=== PATIENT | female | born 1980 | race Caucasian/White ===

== ENCOUNTER 2017-01-23 10:49 | Observation (INO) ==
[2017-01-23] MEDS ORDERED: Ketorolac 30 MG/ML VIAL IVP ONE (11:48)
[2017-01-23] MEDS ORDERED: Hyoscyamine 0.5 MG/ML MLS IVP ONE (11:51)
[2017-01-23 12:34] LABS: Basophils % 0.3 %; Eosinophils % 0.6 %; Hematocrit 36.1 % (35.3-44.9); Hemoglobin 11.8 g/dL (11.5-15.4); Immature Granulocytes % 0.2 % (0-4); Lymphocytes # 1.5 K/mcL (0.6-4.6); Lymphocytes % 23.1 %; Mean Corpuscular HGB Conc 32.7 g/dL (31.6-35.5); Mean Corpuscular Hemoglobin 29.9 pg (28.0-33.3); Mean Corpuscular Volume 91.4 fL (83.0-100.0); Monocytes # 0.5 K/mcL (0.0-1.3); Monocytes % 7.1 %; Neutrophils # 4.5 K/mcL (1.6-8.9); Platelet Count 202 K/mcL (140-400); Red Blood Count 3.95 M/mcL (3.82-4.97); Red Cell Distribution Width 13.2 % (11.5-14.5); Segmented Neutrophils % 68.7 %
[2017-01-23 12:49] LABS: Alanine Aminotransferase 9 Units/L (0-55); Albumin 3.9 g/dL (3.5-5.0); Albumin/Globulin Ratio 1.3 (1.1-2.2); Alkaline Phosphatase 45 Units/L (38-126); Aspartate Amino Transferase 17 Units/L (5-34); BUN/Creatinine Ratio 15 (6-26); Bilirubin,Direct 0.1 mg/dL (0.0-0.5); Bilirubin,Indirect 0.2 mg/dL (0.0-1.2); Bilirubin,Total 0.3 mg/dL (0.2-1.2); Blood Urea Nitrogen 12 mg/dL (7-20); Calcium 8.9 mg/dL (8.6-10.8); Carbon Dioxide 27 mEq/L (19-29); Chloride 106 mEq/L (98-109); Glucose 91 mg/dL (70-99); Lipase 17 Units/L (8-78); Osmolality,Calculated 285 (280-300); Potassium 3.7 mEq/L (3.5-4.5); Sodium 138 mEq/L (136-145); Total Protein 6.9 g/dL (6.0-8.3); eGFR For African Americans > 60 (> 60); eGFR For Non-African Americans > 60 (> 60)
[2017-01-23] MEDS ORDERED: *HR* HYDROmorphone (PF) 1 MG/ML SYRINGE IVP ONE ×2 (13:35→14:39)
--- NOTE | 2017-01-23 13:37 | Emergency Department Note ---
Disposition Clinical Impression: Symptomatic cholelithiasis Disposition: Admitted As Inpatient Condition: Fair Referrals: Radha Durant CNP [Primary Care Provider] - Forms: ED Satisfaction Letter General Adult HPI - General Chief complaint: ED Allergic Reaction Stated complaint: Allergic reaction to Omeprazole Time Seen by Provider: 01/23/17 11:01 Source: patient Limitations: no limitations Nursing Notes Reviewed: Yes Vital Signs Reviewed: Yes - History of Present Illness HPI Narrative: Presents with right upper quadrant abdominal pain which is sharp and severe and constant and she was seen here 5 days ago and diagnosed with cholelithiasis and currently her pain does radiate up to the shoulder. She does have chills but no fevers. Does have nausea but no vomiting. No blood in the urine or stool. Has been using Vicodin for pain but only has 3 left. Social history: No smoking or alcohol. Is here with her mother Pain Scale: 6 - Related Data Previous Rx's Medication Instructions Recorded HYDROcodone/Acet 5/325 mg [[place] 1 tab PO Q6H PRN #12 tab 01/18/17 5-325 mg] Omeprazole 20 mg PO DAILY #30 tablet. 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 EYES: PERRL, no scleral icterus. NOSE: The nose is normal in appearance without rhinorrhea RESP: Normal chest excursion with respiration; breath sounds clear and equal bilaterally; no wheezes, rhonchi, or rales CARD: Regular rhythm, without murmurs, rub or gallop ABD: Non-distended; normal appearance, does have significant pain with palpation right upper quadrant which is moderate to severe but this area is soft without rigidity, rebound, guarding. Elsewhere the abdomen is non-tender , soft,without rigidity, rebound or guarding SKIN: Normal for age and race; warm and dry; no apparent lesions - General Limitations: no limitations General appearance: alert Course Vital Signs Temperature 98.5 F 01/23/17 10:52 Pulse Rate 81 01/23/17 10:52 Respiratory Rate 20 01/23/17 10:52 Blood Pressure 117/73 01/23/17 10:52 O2 Sat by Pulse Oximetry 100 01/23/17 10:52 Temperature 98.5 F 01/23/17 10:52 Pulse Rate 82 01/23/17 15:01 Respiratory Rate 18 01/23/17 15:01 Blood Pressure 107/68 01/23/17 15:01 O2 Sat by Pulse Oximetry 100 01/23/17 15:01 Oxygen Delivery Oxygen Delivery Room Air Medical Decision Making - MDM Narrative Medical decision making narrative: I did order labs which did come back negative. Ultrasound is repeated which does show a stone near the gallbladder neck. Surgeries consult and will come to the ED to further evaluate the patient. 1337 surgery did come to the emergency department to evaluate the patient and the patient will be admitted for intractable pain which is not responsive to oral pain medicine at home for a diagnosis of symptomatic cholelithiasis 1547 - Medical Records Medical records reviewed: Yes I reviewed the patient's medical records. - Lab Data Lab results reviewed: Yes I reviewed the patient's lab results. Result diagrams: 01/23/17 12:09 01/23/17 12:09 Lab Results 01/23/17 01/23/17 01/23/17 Range/Units 12:09 12:09 12:10 WBC 6.5 (4.3-11.1) K/mcL RBC 3.95 (3.82-4.97) M/mcL Hgb 11.8 (11.5-15.4) g/dL Hct 36.1 (35.3-44.9) % MCV 91.4 (83.0-100.0) fL MCH 29.9 (28.0-33.3) pg MCHC 32.7 (31.6-35.5) g/dL RDW 13.2 (11.5-14.5) % Plt Count 202 (140-400) K/mcL MPV 10.0 (9.4-12.4) fL Immature Gran % 0.2 (0-4) % Seg Neutrophils % 68.7 % Lymphocytes % 23.1 % Monocytes % 7.1 % Eosinophils % 0.6 % Basophils % 0.3 % Neutrophils # 4.5 (1.6-8.9) K/mcL Lymphocytes # 1.5 (0.6-4.6) K/mcL Monocytes # 0.5 (0.0-1.3) K/mcL Eosinophils # 0.0 (0.0-0.6) K/mcL Basophils # 0.0 (0.0-0.2) K/mcL Sodium 138 (136-145) mEq/L Potassium 3.7 (3.5-4.5) mEq/L Chloride 106 (98-109) mEq/L Carbon Dioxide 27 (19-29) mEq/L BUN 12 (7-20) mg/dL Creatinine 0.79 (0.57-1.11) mg/dL Est GFR ( Amer) > 60 (> 60) Est GFR (Non-Af Amer) > 60 (> 60) BUN/Creatinine Ratio 15 (6-26) Glucose 91 (70-99) mg/dL Calculated Osmolality 285 (280-300) Calcium 8.9 (8.6-10.8) mg/dL Total Bilirubin 0.3 (0.2-1.2) mg/dL Direct Bilirubin 0.1 (0.0-0.5) mg/dL Indirect Bilirubin 0.2 (0.0-1.2) mg/dL AST 17 (5-34) Units/L ALT 9 (0-55) Units/L Alkaline Phosphatase 45 (38-126) Units/L Serum Total Protein 6.9 (6.0-8.3) g/dL Albumin 3.9 (3.5-5.0) g/dL Globulin 3.0 (2.4-3.5) g/dL Albumin/Globulin Ratio 1.3 (1.1-2.2) Lipase 17 (8-78) Units/L Urine Test Negative (Negative) - Radiology Data Radiology results reviewed: Yes I reviewed the patient's radiology results.
[2017-01-23] MEDS ORDERED: Naloxone 0.4 MG/ML INJ IVP PRN (15:22)
[2017-01-23] MEDS ORDERED: Ondansetron 4 MG/2 ML VIAL IVP PRN (15:22)
[2017-01-23] MEDS ORDERED: Acetaminophen 325 MG TABLET PO PRN (15:25)
[2017-01-23] MEDS ORDERED: *HR* HYDROmorphone (PF) 1 MG/ML SYRINGE IVP PRN (15:25)
[2017-01-23] MEDS ORDERED: *HR* OxyCODONE/APAP 5/325 TABLET PO PRN (15:25)
--- NOTE | 2017-01-23 15:32 | General Surg History&Physical ---
Date of Encounter: 01/23/17 Time of Encounter: 15:00 Assessment and Plan (1) Symptomatic cholelithiasis Current Visit: Yes Status: Acute The assessment and plan as outlined above was discussed with the patient and/or family members who expressed understanding and agreement. All questions were answered. Clear liquid diet today Nothing by mouth after midnight IV fluids Supportive care and pain control Risks, benefits, alternatives, expected outcomes have been reviewed with the patient she is in agreement to proceed to the operating room in the next 24 hours for a laparoscopic cholecystectomy with cholangiogram with Dr. Lawson Martin from her every 1 hour while awake PPI therapy daily Mefoxin 2GM on-call to the OR on 01/24/2017 (2) DVT prophylaxis Current Visit: Yes Status: Acute The assessment and plan as outlined above was discussed with the patient and/or family members who expressed understanding and agreement. All questions were answered. 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 Knox is a 36 year old female with a past medical history significant for anxiety. She presents to the emergency department today with complaints of right upper quadrant abdominal pain. She reports the pain as being sharp and stabbing in nature. She reports that does radiate into her back at times. She reports that she has had similar episode to this in the past. She reports that the episodes have been occurring for "a long time". She experienced her worst episode of pain 5 days ago and she reported to the emergency department for evaluation. She was treated and discharged home with pain medication and follow -up with the surgery office. She states that the Vicodin relieved her symptoms but as soon as she would stop taking the medications her symptoms would return. She reported back to the emergency department today for recurrence of pain. She reports nausea but denies any vomiting. Admits to chills but denies any fevers. Denies any changes in bowel habits. Denies any weight loss. Denies any difficulty with urination. Denies any shortness of breath or chest pain. She has had an ultrasound completed which shows evidence of cholelithiasis with a gallstone located in the neck of the gallbladder. The patient will be admitted to the hospital for further workup and treatment. Past Med Surg Social Fam HX - Past Medical History Source: patient Medical history: other (acne) Psychiatric history: anxiety - Past Surgical History Surgical History: other (tubal ligation) - Social History Smoking Status: Never smoker Smokeless Tobacco Status: No Alcohol use: none Drug use: none Occupational status: employed Current living situation: Home - Independent Activity Level: Independent ambulation - Family History Mother Living Status: Still Living Hx Family Autoimmune Disorders: Yes (ITP) Father History Unknown: Yes Medications and Allergies HYDROcodone/Acet 5/325 mg [[place] 5-325 mg] 1 tab PO Q6H PRN #12 tab 01/18/17 [Rx ] Omeprazole 20 mg PO DAILY #30 tablet. 01/18/17 [Rx] Allergies No Known Allergies Allergy (Verified 01/23/17 10:52) Review of Systems All systems PM: reviewed and no additional remarkable complaints except as stated (in the HPI) All systems PM: A 10-system review of systems was performed and is negative for pertinent findings except as documented above in the HPI. General Surgery Exam Initial Vital Signs Temp Pulse Resp BP Pulse Ox 98.5 F 81 20 117/73 100 01/23/17 10:52 01/23/17 10:52 01/23/17 10:52 01/23/17 10:52 01/23/17 10:52 - General physical appearance well developed, well nourished, no distress - Eyes normal ocular movement - ENT normal mucosa, atraumatic, normocephalic - Neck trachea midline - Respiratory normal expansion, normal respiratory effort, clear to auscultation - Cardiovascular Cardiovascular exam: Present: RRR - Abdomen Abdomen general surgery: Present: bowel sounds present, soft, tender Abdominal Tenderness: Present: epigastic, RUQ - Integumentary Integumentary general surgery: Present: warm and dry - Neurologic Present: CN 2-12 grossly intact - Musculoskeletal Present: normal gait, normal posture - Psychiatric Psychiatric general surgery: Present: appropriate, oriented to person, oriented to place, oriented to time, speech is normal, memory intact Results - Labs 01/23/17 12:09 01/23/17 12:09 Diabetes panel 01/23/17 Range/Units 12:09 Sodium 138 (136-145) mEq/L Potassium 3.7 (3.5-4.5) mEq/L Chloride 106 (98-109) mEq/L Carbon Dioxide 27 (19-29) mEq/L BUN 12 (7-20) mg/dL Creatinine 0.79 (0.57-1.11) mg/dL Glucose 91 (70-99) mg/dL Calcium 8.9 (8.6-10.8) mg/dL AST 17 (5-34) Units/L ALT 9 (0-55) Units/L Alkaline Phosphatase 45 (38-126) Units/L Albumin 3.9 (3.5-5.0) g/dL Calcium panel 01/23/17 Range/Units 12:09 Calcium 8.9 (8.6-10.8) mg/dL Albumin 3.9 (3.5-5.0) g/dL Pituitary panel 01/23/17 Range/Units 12:09 Sodium 138 (136-145) mEq/L Potassium 3.7 (3.5-4.5) mEq/L Chloride 106 (98-109) mEq/L Carbon Dioxide 27 (19-29) mEq/L BUN 12 (7-20) mg/dL Creatinine 0.79 (0.57-1.11) mg/dL Glucose 91 (70-99) mg/dL Calcium 8.9 (8.6-10.8) mg/dL Adrenal panel 01/23/17 Range/Units 12:09 Sodium 138 (136-145) mEq/L Potassium 3.7 (3.5-4.5) mEq/L Chloride 106 (98-109) mEq/L Carbon Dioxide 27 (19-29) mEq/L BUN 12 (7-20) mg/dL Creatinine 0.79 (0.57-1.11) mg/dL Glucose 91 (70-99) mg/dL Calcium 8.9 (8.6-10.8) mg/dL Total Bilirubin 0.3 (0.2-1.2) mg/dL AST 17 (5-34) Units/L ALT 9 (0-55) Units/L Alkaline Phosphatase 45 (38-126) Units/L Albumin 3.9 (3.5-5.0) g/dL All other labs normal. - Imaging US - abdomen: report reviewed Additional studies: Gallbladder Ultrasound 01/23/17 11:52 IMPRESSION: Gallstone located near the neck the gallbladder but no evidence of cholecystitis. Otherwise negative examination D/ / Dion Negrete MD / Dion Negrete MD Interpreting Provider: Dion Negrete MD - Attending Attestation For this encounter, I have reviewed the [employer] or PA documentation, treatment plan, and medical decision making; and I have had face to face time with this patient.
[2017-01-23] MEDS: 0.9 % Sodium Chloride 1,000 ML IVC SCH (18:24)
[2017-01-24] MEDS: 0.9 % Sodium Chloride 1,000 ML IVC SCH (05:58)
[2017-01-24] MEDS ORDERED: Ondansetron 4 MG/2 ML VIAL ONE (07:28)
[2017-01-24] MEDS ORDERED: Dexamethasone 4 MG/ML VIAL ONE (07:28)
[2017-01-24] MEDS ORDERED: Lidocaine -MPF 4% 5 ML AMPUL ONE (07:28)
[2017-01-24] MEDS ORDERED: Lidocaine -MPF 2% 2 ML VIAL ONE (07:28)
[2017-01-24] MEDS ORDERED: *HR* Midazolam HCl 2 MG/2 ML VIAL ONE (07:29)
[2017-01-24] MEDS ORDERED: *HR* FentaNYL (PF) 100 MCG/2 ML VIAL ONE (07:29)
[2017-01-24] MEDS ORDERED: *HR* Propofol 200 MG/20 ML VIAL IVP ONE (07:29)
--- NOTE | 2017-01-24 07:40 | Anesthesia Evaluation PreOp ---
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 01/18/17 [Rx] Sertraline [Zoloft] 50 mg PO DAILY 01/23/17 [History] Spironolactone [Aldactone] 50 mg PO DAILY 01/23/17 [History] Allergies No Known Allergies Allergy (Verified 01/23/17 15:46) - Meds/Allergy Pre-op Review Medications Reviewed: Yes Allergies Reviewed: Yes Beta Blockers on Current Med List: No Anesthesia Results - Labs 01/23/17 12:09 01/23/17 12:09 Laboratory Tests 01/23/17 01/23/17 01/23/17 12:09 12:09 12:10 WBC 6.5 Hgb 11.8 Hct 36.1 Plt Count 202 Sodium 138 Potassium 3.7 Chloride 106 Carbon Dioxide 27 BUN 12 Creatinine 0.79 Est GFR (Non-Af Amer) > 60 Glucose 91 Urine Test Negative - Imaging EKG: image reviewed (62bpm, possible RV conduction delay) Anesthesia Exam Vital Signs Temp Pulse Resp BP Pulse Ox 01/24/17 07:01 98.7 F 77 15 103/66 98 01/24/17 03:34 98.0 F 76 16 100/65 100 01/23/17 23:39 98.2 F 59 12 100/64 99 01/23/17 19:48 98.0 F 70 12 97/64 98 01/23/17 16:46 18 102/72 01/23/17 15:55 76 18 108/62 98 01/23/17 15:01 82 18 107/68 100 01/23/17 11:42 85 18 120/66 99 01/23/17 10:52 98.5 F 81 20 117/73 100 Intake and Output 01/23/17 01/23/17 01/24/17 15:59 23:59 07:59 Intake Total 200 / 200 1000 / 1000 Balance 200 / 200 1000 / 1000 Intake: IV Fluids 1000 / 1000 0.9 % Sodium Chloride 1, 1000 / 1000 000 ML @ 75 mls/hr IVC . [id number] JOSEPHINE Rx#: [id number] Oral 200 / 200 Other: Weight 67.948 kg 67.585 kg Patient Weight 01/24/17 23:59 Weight 67.585 kg Height: 5'4" Weight: 150# BMI = 25.6 NPO (# of Hours): MNoc - HEENT Pupil (Motor): Pupils equal, EOMI Mallampati: II Teeth: Normal Oral Opening: Greater than 3 - STAFF TECHNOLOGIST LOC: Oriented STAFF TECHNOLOGIST Motor: Normal RUE, Normal LUE, Normal RLE, Normal LLE, Normal Face STAFF TECHNOLOGIST Sensory: Normal: RUE, LUE, RLE, LLE, Face - Cardiac Rhythm: Regular Murmur: None - Pulmonary Breath Sounds: bilateral Clear Respiratory Effort: Symmetrical Anesthesia Assess/Plan ASA Score: 2 Modified Edison Scale for Level of Consciousness: Cooperative, oriented, and tranquil Anesthetic Plan: General Monitoring Plan: Standard Monitors Recovery Plan: PACU Anes Supervising Prov Stmt: Pt seen/evaluated, R&B discussed, questions answered and consent obtained. Berenice Hanson MD
[2017-01-24] MEDS ORDERED: Acetaminophen IV 1,000 MG/100 ML INFUS..BTL ONE (07:49)
[2017-01-24] MEDS ORDERED: CefOXitin 2,000 MG VIAL IVPB ONE (07:57)
[2017-01-24] MEDS ORDERED: cefOXitin 2,000 MG in D5% in Water (Mini-Bag+) 100 ML IVPB ONE (08:00)
[2017-01-24] MEDS ORDERED: Lacri-Lube 3.5 GM TUBE ONE (08:43)
[2017-01-24] MEDS ORDERED: Neostigmine Methylsulfate 3 MG/3 ML SYRINGE ONE (08:53)
[2017-01-24] MEDS ORDERED: Ondansetron 4 MG/2 ML VIAL IVP ONE ×2 (09:01→10:10)
[2017-01-24] MEDS ORDERED: *HR* Labetalol 20 MG/4 ML SYRINGE IVP PRN ×2 (09:01→10:10)
[2017-01-24] MEDS ORDERED: *HR* Promethazine 25 MG/ML VIAL IVP PRN ×2 (09:01→10:10)
--- NOTE | 2017-01-24 09:09 | Operative Note ---
Date of procedure: 01/24/17 Pre-op diagnosis: Symptomatic cholelithiasis Post-op diagnosis: same Procedure: Laparoscopic cholecystectomy with cholangiogram Anesthesia: HERBERT Surgeon: Brendon Pathak Estimated blood loss (cc): 5 Specimen: gb Condition: stable Disposition: same day Procedure in Detail: After informed consent this patient was taken the operating room placed supine position. After adequate sedation anesthesia the abdomen was prepped and draped. A proper timeout was performed. Two towel clamps are placed at the umbilicus and a Veres needle was inserted into the abdomen. A 5 mm incision was made at the umbilicus. A 12 mm incision was made in the subxiphoid region. Two 5 mm incisions were made in the right upper quadrant that were 4 finger breadths and 6 finger breadths below the costal margin. The gallbladder was identified, retracted anteriorly and cephalad, and the infundibulum was skeletonized. The cystic duct was easily identified and was dissected free. A ductotomy was created in the cystic duct. A taut catheter was placed within the cystic duct and clipped. A cholangiogram was performed. Contrast filled the cystic duct, common hepatic duct, hepatic radicles, and the distal common bile duct. There was flow of contrast into the duodenum. Once this was confirmed the clippers removed, the taut catheter was removed as well, and the cystic duct was clipped distally. The cystic duct was then transected with scissors. The gallbladder was resected off the liver surface. There was excellent hemostasis. The gallbladder was then retrieved through the 12 mm cannula site. At this point the abdomen was suctioned dry and the pneumoperitoneum was then evacuated. All ports were removed. The 12 mm cannula site was closed with an 0 Vicryl suture in [id number] fashion. The skin was closed with 4-0 Vicryl suture. Dermabond was placed as well. All instrument counts and needle counts are correct in the operation. She tolerated the procedure well and was transferred to the PACU in stable condition.
[2017-01-24] MEDS: *HR* HYDROmorphone (PF) 1 MG/ML SYRINGE IVP PRN ×2 (09:38→09:43)
[2017-01-24] MEDS ORDERED: Ketorolac 30 MG/ML VIAL ONE (10:01)
[2017-01-24] MEDS ORDERED: Ketorolac 30 MG/ML VIAL IVP ONE (10:02)
[2017-01-24] MEDS ORDERED: *HR* OxyCODONE/APAP 5/325 TABLET PO PRN (10:10)
[2017-01-24] MEDS ORDERED: *HR* HYDROmorphone (PF) 1 MG/ML SYRINGE IVP PRN ×2 (10:10)
[2017-01-24] MEDS ORDERED: Acetaminophen 325 MG TABLET PO PRN (10:10)
[2017-01-24] MEDS ORDERED: 0.9 % Sodium Chloride 1,000 ML IVC SCH (10:10)
[2017-01-24] MEDS ORDERED: Ondansetron 4 MG/2 ML VIAL IVP PRN (10:10)
[2017-01-24] MEDS ORDERED: Naloxone 0.4 MG/ML INJ IVP PRN (10:10)
--- NOTE | 2017-01-24 10:29 | Anesthesia Evaluation Post Op ---
Date of Encounter: 01/24/17 Time of Encounter: 10:00 - Vital Signs Vital Signs: Vital Signs/O2 Sat/Glucose, Most Current Temp Pulse Resp BP Pulse Ox 01/24/17 10:25 64 14 96/52 98 01/24/17 10:03 68 14 97/54 99 01/24/17 09:53 98.6 F 64 16 91/38 99 01/24/17 09:43 58 14 97/57 98 01/24/17 09:33 60 14 93/59 99 01/24/17 09:23 98.7 F 80 16 100/59 100 01/24/17 07:01 98.7 F 77 15 103/66 98 - Lungs Lungs: Clear Ascult./Percussion - Airway Airway: Non-obstructed - Cardiovascular Regular Rate - Mental Status Mental Status: Alert & Oriented, Answers Appropriately - Pain Pain Scale: 5 Pain Scale used: Numeric (1 - 10) - Nausea Vomiting Nausea Vomiting: Not Present - Hydration Hydration: Ice chips, Has not voided - Discharge PostOp Status: Transfer Patient to floor Anes Supervising Prov Stmt: Pt seen/evaluated, VSS and pt has met criteria for discharge to floor. - MD Valentin
[2017-01-24 13:48] VITALS: BP 96/59
--- NOTE | 2017-01-24 14:09 | Discharge Summary ---
Date of Encounter: 01/24/17 Time of Encounter: 14:00 - Discharge Diagnosis (1) Symptomatic cholelithiasis Priority: Primary Status: Resolved - Discharge Medications Prescriptions: Ibuprofen [Motrin] 800 mg PO Q8HR #50 tablet Docusate [Colace] 100 mg PO BID #30 tab HYDROcodone/Acet 5/325 mg [[place] 5-325 mg] 1 tab PO Q6H PRN #30 tab PRN Reason: Pain Home Medications: Omeprazole 20 mg PO DAILY #30 tablet. 01/18/17 [Rx] Sertraline [Zoloft] 50 mg PO DAILY 01/23/17 [History] Spironolactone [Aldactone] 50 mg PO DAILY 01/23/17 [History] Docusate [Colace] 100 mg PO BID #30 tab 01/24/17 [Rx] HYDROcodone/Acet 5/325 mg [[place] 5-325 mg] 1 tab PO Q6H PRN #30 tab 01/24/17 [Rx ] Ibuprofen [Motrin] 800 mg PO Q8HR #50 tablet 01/24/17 [Rx] Allergies/Adverse Reactions: Allergies No Known Allergies Allergy (Verified 01/23/17 15:46) General Surgery Exam Initial Vital Signs Temp Pulse Resp BP Pulse Ox 98.5 F 81 20 117/73 100 01/23/17 10:52 01/23/17 10:52 01/23/17 10:52 01/23/17 10:52 01/23/17 10:52 - General physical appearance well developed, well nourished, no distress - Eyes normal ocular movement - ENT normal mucosa, atraumatic, normocephalic - Neck trachea midline - Respiratory normal respiratory effort, clear to auscultation - Cardiovascular Cardiovascular exam: Present: RRR - Abdomen Abdomen general surgery: Present: bowel sounds present, soft, tender (Expected postoperative tenderness) - Incision Incision: Present: clean and dry, intact - Integumentary Integumentary general surgery: Present: warm and dry - Neurologic Present: CN 2-12 grossly intact - Musculoskeletal Present: normal gait, normal posture - Psychiatric Psychiatric general surgery: Present: appropriate, oriented to person, oriented to place, oriented to time, speech is normal, memory intact Date of admission: 01/23/17 15:59 Primary care physician: Radha Durant CNP Discharging clinician: Brendon Orr. [place]) Anticipated date of discharge: 01/24/17 - Patient Status Disposition: Home, Self-Care Condition: Good Functional capacity at discharge: independent ambulation Overall status at discharge: patient is progressing back to baseline - Discharge Instructions Follow Up With: Radha Durant, [employer] [Primary Care Provider] - Harriet Garces CNP [Advanced Practice Nurse] - 02/04/17 10:15 am (surgery follow-up) Forms: Work/School Release Additional Instructions: #1 may shower, no tub bath or swimming for 2 weeks #2 wash incisions with soap and water and pat dry daily #3 no lifting, pushing, pulling more than 15 pounds for the next 2 weeks #4 no driving until off narcotics for 24 hours and able to safely react in the car #5 may climb stairs - Diet and Activity Activity: other (See additional instructions above) Diet: advance to your usual diet - Hospital Course Hospital course: Ms. Knox is a 36 year old female presented to the emergency department with recurrent abdominal discomfort. She did have associated nausea without vomiting. Her pain is due to symptomatic cholelithiasis. She was admitted to the hospital and started on supportive measures including IV fluids and pain control. She was taken to the operating room for a laparoscopic cholecystectomy with cholangiogram with Dr. Pathak on 01/24/2017. We will begin discharge planning to home when the patient eats discharge criteria including: Tolerates liquids without nausea or vomiting, vital signs are stable and afebrile, pain is well controlled, voiding and ambulating without difficulty. We will plan for follow-up appointment in the next 10-14 days. - Time Spent with Patient Total time spent providing and/or coordinating discharge services: Less than 30 minutes - Impressions ITS Impressions Cholangiogram,Operative 01/24/17 07:32 IMPRESSION: No evidence of retained common bile duct stone D/ / Conner He MD / Conner He MD Interpreting Provider: Conner He MD
--- NOTE | 2017-01-24 14:11 | Electrocardiograph Report ---
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
--- NOTE | 2017-01-24 14:11 | Electrocardiograph Report ---
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
== END 2017-01-24 15:20 | disposition home or self-care (01) ==
LOC: EMEROO 10:49 → 3BNU 10:49
PROVIDERS: ADMIT Surgery; ATTEND Surgery

== ENCOUNTER 2019-04-29 12:47 | Inpatient (IN) ==
[2019-04-29] MEDS ORDERED: cefOXitin 2,000 MG in Water for inj. (sterile) 20 ML IVP ONE (13:05)
[2019-04-29] MEDS ORDERED: Ringers Solution, Lactated 1,000 ML IVC SCH (13:15)
[2019-04-29 13:16] LABS: Basophils % 0.4 %; Eosinophils # 0.1 K/mcL (0.0-0.6); Hematocrit 25.2 % (35.3-44.9); Hemoglobin 7.3 g/dL (11.5-15.4); Immature Granulocytes % 0.2 % (0-4); Lymphocytes # 1.6 K/mcL (0.6-4.6); Lymphocytes % 32.4 %; Mean Corpuscular Volume 65.6 fL (83.0-100.0); Mean Platelet Volume 10.2 fL (9.4-12.4); Monocytes # 0.5 K/mcL (0.0-1.3); Monocytes % 9.4 %; Neutrophils # 2.8 K/mcL (1.6-8.9); Platelet Count 175 K/mcL (140-400); Red Blood Count 3.84 M/mcL (3.82-4.97); Red Cell Distribution Width 16.5 % (11.5-14.5); Segmented Neutrophils % 56.6 %; White Blood Count 4.9 K/mcL (4.3-11.1)
[2019-04-29 13:36] LABS: Anisocytosis 1+ (Not Present)
[2019-04-29 13:37] LABS: Hypochromasia Present (Not Present); Platelet Estimate Normal (Normal)
[2019-04-29] MEDS ORDERED: Ondansetron 4 MG/2 ML VIAL IVP ONE (14:10)
[2019-04-29] MEDS ORDERED: *HR* OxyCODONE Immed Rel 5 MG TABLET PO PRN (14:10)
[2019-04-29] MEDS ORDERED: Lidocaine -MPF 2% 2 ML VIAL ONE (14:29)
[2019-04-29] MEDS ORDERED: Ondansetron 4 MG/2 ML VIAL ONE (14:29)
[2019-04-29] MEDS ORDERED: *HR* Propofol 200 MG/20 ML VIAL IVP ONE (14:30)
[2019-04-29] MEDS ORDERED: *HR* FentaNYL (PF) 100 MCG/2 ML VIAL ONE ×2 (14:30→17:56)
[2019-04-29] MEDS ORDERED: *HR* Midazolam HCl 2 MG/2 ML VIAL ONE (14:30)
[2019-04-29] MEDS ORDERED: Ketorolac 30 MG/ML VIAL ONE (16:53)
[2019-04-29] MEDS ORDERED: EPHEDrine 50 MG/ML VIAL ONE (17:23)
[2019-04-29 17:36] LABS: Hematocrit 19.1 % (35.3-44.9)
[2019-04-29 17:38] LABS: Hemoglobin 5.3 g/dL (11.5-15.4)
[2019-04-29] MEDS ORDERED: *HR* Rocuronium Bromide 50 MG/5 ML VIAL ONE (17:42)
[2019-04-29] MEDS ORDERED: Lidocaine HCL 4 ML Topical Solution (Laryng-O-Jet Kit Sterile Pak) TP ONE (17:42)
[2019-04-29 18:33] LABS: INR 1.3; Prothrombin Time 15.3 Seconds (9.4-12.1)
[2019-04-29 18:34] LABS: Basophils % 0.1 %
[2019-04-29 18:36] LABS: Activated Partial Thrombo Time 30.7 Seconds (26.0-36.0)
[2019-04-29 18:36] LABS: Eosinophils % 0.6 %; Hematocrit 24.2 % (35.3-44.9); Immature Granulocytes % 0.9 % (0-4); Immature Platelets 6.4 % (1.1-6.1); Lymphocytes # 1.3 K/mcL (0.6-4.6); Lymphocytes % 18.7 %; Mean Corpuscular HGB Conc 28.9 g/dL (31.6-35.5); Mean Corpuscular Hemoglobin 21.6 pg (28.0-33.3); Mean Corpuscular Volume 74.7 fL (83.0-100.0); Mean Platelet Volume 10.2 fL (9.4-12.4); Monocytes # 0.3 K/mcL (0.0-1.3); Monocytes % 4.3 %; Neutrophils # 5.1 K/mcL (1.6-8.9); Red Blood Count 3.24 M/mcL (3.82-4.97); Red Cell Distribution Width 21.1 % (11.5-14.5); Segmented Neutrophils % 75.4 %; White Blood Count 6.8 K/mcL (4.3-11.1)
[2019-04-29 18:37] LABS: Platelet Count 93 K/mcL (140-400)
[2019-04-29 19:09] LABS: Burr Cells 1+ (Not Present); Hypochromasia Present (Not Present)
[2019-04-29] MEDS: Morphine Sulfate 2 MG/ML SYRINGE IVP PRN ×2 (19:35→19:40)
[2019-04-29] MEDS ORDERED: Acetaminophen IV 500 MG/50 ML INFUS..BTL IVPB ONE (20:07)
[2019-04-29] MEDS: *HR* HYDROmorphone (PF) 1 MG/ML SYRINGE IVP PRN ×4 (20:28→22:07)
[2019-04-29] MEDS ORDERED: Acetaminophen IV 1,000 MG/100 ML INFUS..BTL ONE (20:34)
[2019-04-29] MEDS ORDERED: Ondansetron 4 MG/2 ML VIAL IVP PRN (21:49)
[2019-04-29] MEDS ORDERED: Naloxone 0.4 MG/ML INJ IVP PRN (21:49)
[2019-04-29] MEDS ORDERED: *HR* HYDROmorphone 2 MG/ML SYRINGE IVP PRN (21:49)
[2019-04-30] MEDS: *HR* OxyCODONE/APAP 5/325 TABLET PO PRN ×4 (01:09→19:05)
[2019-04-30] MEDS ORDERED: Ringers Solution, Lactated 1,000 ML ONE (02:21)
[2019-04-30] MEDS: *HR* HYDROmorphone (PF) 1 MG/ML SYRINGE IVP PRN ×3 (02:55→14:44)
[2019-04-30 06:07] LABS: Immature Granulocytes % 0.4 % (0-4); Mean Corpuscular Volume 74.2 fL (83.0-100.0); Red Cell Distribution Width 19.9 % (11.5-14.5)
[2019-04-30 06:09] LABS: Hematocrit 31.3 % (35.3-44.9); Hemoglobin 9.7 g/dL (11.5-15.4); Immature Platelets 8.3 % (1.1-6.1); Lymphocytes # 0.6 K/mcL (0.6-4.6); Lymphocytes % 5.5 %; Monocytes # 0.6 K/mcL (0.0-1.3); Monocytes % 5.6 %; Platelet Count 113 K/mcL (140-400); Red Blood Count 4.22 M/mcL (3.82-4.97); Segmented Neutrophils % 88.5 %; White Blood Count 11.1 K/mcL (4.3-11.1)
[2019-04-30 06:12] LABS: Neutrophils # 9.8 K/mcL (1.6-8.9)
[2019-04-30 06:30] LABS: BUN/Creatinine Ratio 20 (6-26); Blood Urea Nitrogen 12 mg/dL (6-20); eGFR For African Americans > 60 (> 60); eGFR For Non-African Americans > 60 (> 60)
[2019-04-30] MEDS: Simethicone 80 MG TAB.CHEW PO PRN (21:09)
[2019-05-01] MEDS: Simethicone 80 MG TAB.CHEW PO PRN ×2 (04:49→08:43)
[2019-05-01] MEDS ORDERED: MOM Conc 10 ML UD.LIQ PO PRN (07:48)
[2019-05-01 07:59] VITALS: BP 113/72
== END 2019-05-01 12:59 | disposition home or self-care (01) | DRG 742 ==
LOC: SAMDAY 12:47 → 1NENUOBS 21:45
PROVIDERS: ADMIT Obstetrics & Gynecology; ATTEND Obstetrics & Gynecology